=== PATIENT | female | born 1960 | race Two or more races ===

== ENCOUNTER 2021-08-11 16:47 | Emergency (ER) | payer SELFPAY ==
[~2021-08-11] VITALS: Ht 162.6 cm; Wt 56.7 kg
[2021-08-11] MEDS ORDERED: traMADol HCL 50 MG TAB PO ONE (18:45)
[2021-08-11 21:25] VITALS: BP 138/80
== END 2021-08-11 21:29 | disposition home or self-care (01) ==
LOC: ER 16:50
DX: M54.32 Sciatica, left side (principal); I10 Essential (primary) hypertension; E11.9 Type 2 diabetes mellitus without complications; J45.909 Unspecified asthma, uncomplicated; Z90.710 Acquired absence of both cervix and uterus
CPT/HCPCS: 72100

== ENCOUNTER 2023-05-04 12:12 | Inpatient (IN) | payer MEDICAID, OTHER ==
[~2023-05-04] VITALS: Ht 149.9 cm; Wt 69.9 kg
[2023-05-04] MEDS ORDERED: PANTOPRAZOLE 40 MG/10 ML VIAL INJ IV ONE ×2 (12:45→15:30)
[2023-05-04 13:27] LABS: Basophils # (auto) 0 10 ^3/uL (0-0.2); Basophils % (auto) 0.4 % (0.0-2.0); Eosinophils # (auto) 0.1 10 ^3/uL (0-0.8); Eosinophils % (auto) 1.1 % (0.0-7.0); Hematocrit 41.7 % (36.0-46.0); Hemoglobin 13.9 g/dL (12.2-16.2); Lymphocytes # (auto) 2.1 10 ^3/uL (0.4-5.4); Lymphocytes % (auto) 25.5 % (10.0-50.0); Mean Corpuscular Hemoglobin 28.4 pg (28.0-32.0); Mean Corpuscular Hgb Conc. 33.3 g/dL (32.0-36.0); Mean Corpuscular Volume 85.2 fL (80.0-100.0); Monocytes # (auto) 0.5 10 ^3/uL (0-1.3); Monocytes % (auto) 6.6 % (0.0-12.0); Neutrophils # (auto) 5.5 10 ^3/uL (1.6-8.6); Neutrophils % (auto) 66.4 % (37.0-80.0); Nucleated Red Blood Cells % 0.1 %; Red Blood Cells 4.89 10^6/uL (4.0-5.20); White Blood Cell 8.2 10^3/uL (4.4-10.8)
[2023-05-04 13:44] LABS: Urine Bacteria FEW /hpf (None Seen); Urine Blood Negative /uL (Negative); Urine Clarity Clear (Clear); Urine Protein, UAD TRACE (Negative); Urine Specific Gravity 1.034 (1.001-1.035); Urine Urobilinogen Normal (Negative); Urine WBC 5 /hpf (0 - 5)
[2023-05-04 13:49] LABS: Alanine Aminotransferase 13 U/L (7-40); Albumin 4.4 g/dL (3.2-4.8); Alkaline Phosphatase 144 U/L (46-116); Anion Gap 8 (5-15); Aspartate Aminotransferase < 8 U/L (13-40); BUN/Creatinine Ratio 8.8 (10.0-20.0); Blood Urea Nitrogen 10 mg/dL (9-23); Calcium 9.5 mg/dL (8.7-10.4); Carbon Dioxide 26 mmol/L (20-30); Chloride 93 mmol/L (98-107); Lipase 214 U/L (12-53); Potassium 4.5 mmol/L (3.5-5.1); Sodium 127 mmol/L (136-145)
[2023-05-04 13:50] LABS: Bilirubin, Total 0.6 mg/dL (0.2-1.0); Total Protein 7.2 g/dL (5.7-8.2)
[2023-05-04 13:55] LABS: Urine Color Straw (Yellow)
[2023-05-04 14:03] LABS: Glucose 532 mg/dL (74-106)
[2023-05-04] MEDS ORDERED: InsuLIN REG 1unit/0.01ml Soln (100units/ml) IV ONE (14:15)
[2023-05-04] MEDS ORDERED: SODIUM CHLORIDE 0.9% 1,000 ML IVB ONE (14:15)
[2023-05-04] MEDS ORDERED: AMLO1TAB22 PO (15:29)
[2023-05-04] MEDS ORDERED: HYDR25TA5 PO (15:29)
[2023-05-04] MEDS ORDERED: METF-370 PO (15:29)
[2023-05-04] MEDS ORDERED: ONDANSETRON HCL 4 MG/2 ML VIAL IV PRN (15:30)
[2023-05-04] MEDS ORDERED: KETOROLAC TROMETH 60MG/2ML VIAL IV ONE (15:30)
[2023-05-04] MEDS ORDERED: MORPHINE SULFATE INJ 2 MG/ml SYRG IV PRN (15:30)
[2023-05-04] MEDS ORDERED: cefTRIAXone 1GM/50ML D5W 50 ML IV ONE (15:30)
[2023-05-04] MEDS ORDERED: SODIUM CHLORIDE 0.9% 1,000 ML IV ONE (15:30)
[2023-05-04] MEDS ORDERED: DEXTROSE (50%) 50ML SYRG IV PRN (15:30)
[2023-05-04 16:18] LABS: INR 1.07 (0.9-1.15); Prothrombin Time 11.2 sec (9.3-11.8)
[2023-05-04] MEDS: ACCU-CHEK COMFORT CURVE STRIP VI SCH (17:00)
[2023-05-04] MEDS: SODIUM CHLORIDE 0.9% 1,000 ML IV SCH (17:39)
[2023-05-04] MEDS: InsuLIN REG 1unit/0.01ml Soln (100units/ml) SC SCH (17:40)
[2023-05-05] VITALS (7 sets, daily range): BP systolic 119–130; BP diastolic 72–81; PULSE 98–124; RESP 16–18; TEMP 98–98.3; O2SAT 94–99
[2023-05-05] MEDS: HEPARIN SODIUM (PORCINE) 5000 UNITS/ML 1ML VIAL SC SCH ×3 (02:09→22:00)
[2023-05-05] MEDS: InsuLIN REG 1unit/0.01ml Soln (100units/ml) SC SCH ×5 (02:11→22:33)
[2023-05-05] MEDS: ACCU-CHEK COMFORT CURVE STRIP VI SCH ×5 (02:16→22:00)
[2023-05-05] MEDS: SODIUM CHLORIDE 0.9% 1,000 ML IV SCH ×4 (03:50→22:33)
[2023-05-05 05:58] LABS: Alanine Aminotransferase 10 U/L (7-40); Alkaline Phosphatase 104 U/L (46-116); Anion Gap 7 (5-15); Aspartate Aminotransferase 9 U/L (13-40); BUN/Creatinine Ratio 6.2 (10.0-20.0); Blood Urea Nitrogen 5 mg/dL (9-23); Carbon Dioxide 27 mmol/L (20-30); Chloride 99 mmol/L (98-107); Glucose 191 mg/dL (74-106); Potassium 3.5 mmol/L (3.5-5.1)
[2023-05-05 05:59] LABS: Bilirubin, Total 0.5 mg/dL (0.2-1.0); Total Protein 6.9 g/dL (5.7-8.2)
[2023-05-05 06:02] LABS: Basophils # (auto) 0 10 ^3/uL (0-0.2); Basophils % (auto) 0.2 % (0.0-2.0); Eosinophils # (auto) 0.2 10 ^3/uL (0-0.8); Eosinophils % (auto) 2.7 % (0.0-7.0); Hemoglobin 12.3 g/dL (12.2-16.2); Lymphocytes # (auto) 2.7 10 ^3/uL (0.4-5.4); Lymphocytes % (auto) 31.2 % (10.0-50.0); Mean Corpuscular Hemoglobin 28.8 pg (28.0-32.0); Mean Corpuscular Hgb Conc. 34.3 g/dL (32.0-36.0); Mean Corpuscular Volume 84.1 fL (80.0-100.0); Monocytes # (auto) 0.5 10 ^3/uL (0-1.3); Monocytes % (auto) 5.4 % (0.0-12.0); Neutrophils # (auto) 5.2 10 ^3/uL (1.6-8.6); Neutrophils % (auto) 60.5 % (37.0-80.0); Red Blood Cells 4.28 10^6/uL (4.0-5.20); Red Cell Distribution Width 12.8 % (11.8-14.3); White Blood Cell 8.6 10^3/uL (4.4-10.8)
[2023-05-05] MEDS ORDERED: hydrALAZINE HCL 20 MG/ML VL IV ONE (06:15)
[2023-05-05 06:21] LABS: Sodium 133 mmol/L (136-145)
[2023-05-05 06:51] LABS: Lipase 114 U/L (12-53)
[2023-05-05] MEDS: amLODIPine BESYLATE 5 MG TAB PO SCH (10:00)
[2023-05-05] MEDS: HCTZ 25 MG TAB PO SCH (10:00)
[2023-05-05] MEDS: cefTRIAXone 1GM/50ML D5W 50 ML IV SCH ×2 (10:37→12:30)
[2023-05-05] MEDS: KETOROLAC TROMETH 60MG/2ML VIAL IV PRN ×2 (10:38→16:39)
[2023-05-05] MEDS: PANTOPRAZOLE 40 MG/10 ML VIAL INJ IV SCH (10:55)
[2023-05-05] MEDS: hydrALAZINE HCL 20 MG/ML VL IV PRN (11:07)
[2023-05-05] MEDS ORDERED: ONDANSETRON HCL 4 MG/2 ML VIAL ONE (12:17)
[2023-05-05] MEDS ORDERED: NEOSTIGMINE 1 MG/ML INJ (10mg/10ML VIAL) ONE (12:17)
[2023-05-05] MEDS ORDERED: fentaNYL CITRATE 100 MCG/2 ML VL ONE (12:17)
[2023-05-05] MEDS ORDERED: DexAMETHasone SOD PHOS 10MG/1ML VIAL INJ ONE (12:17)
[2023-05-05] MEDS ORDERED: MEPERIDINE HCL (25 MG/ML) 1ML VIAL ONE (12:17)
[2023-05-05] MEDS ORDERED: MIDAZOLAM HCL 2MG/2ML 2ml VIAL (1mg/ml) ONE (12:17)
[2023-05-05] MEDS ORDERED: ETOMIDATE (2MG/ML) 20ML VIAL IV ONE (12:17)
[2023-05-05] MEDS ORDERED: SODIUM CHLORIDE LOCK 10 ML ONE (12:17)
[2023-05-05] MEDS ORDERED: ROCURONIUM 10MG/ML 10ML VIAL IV ONE (12:17)
[2023-05-05] MEDS ORDERED: GLYCOPYRROLATE 0.2 MG/ML 1ML VIAL ONE (12:17)
[2023-05-05] MEDS ORDERED: BUPIVACAINE HCL 0.25% P/F 10 ML VIAL ONE (12:18)
[2023-05-05] MEDS ORDERED: SUCCINYLCHOLINE CHLORIDE 20 MG/ML 10ML VIAL IV ONE (12:19)
[2023-05-05] MEDS ORDERED: ceFAZolin 1GM/50ML 100 ML IV ONE (12:30)
[2023-05-05] MEDS ORDERED: ACCU-CHEK COMFORT CURVE STRIP VI ONE (12:30)
[2023-05-05] MEDS ORDERED: METOCLOPRAMIDE HCL 5MG/ml INJ 2ml VIAL IV PRN (12:30)
[2023-05-05] MEDS ORDERED: HYDROmorphone HCL 2 MG/ML VL/or syr IV PRN ×2 (12:30)
[2023-05-05] MEDS ORDERED: MORPHINE SULFATE INJ 2 MG/ml SYRG IV PRN (12:30)
[2023-05-05] MEDS ORDERED: INSUINJ37 SC (19:22)
[2023-05-06] VITALS (8 sets, daily range): BP systolic 102–178; BP diastolic 56–91; PULSE 97–110; RESP 18–20; TEMP 98.1–98.8; O2SAT 93–96
[2023-05-06] MEDS: InsuLIN REG 1unit/0.01ml Soln (100units/ml) SC SCH ×4 (06:29→22:23)
[2023-05-06 07:23] LABS: Basophils # (auto) 0 10 ^3/uL (0-0.2); Basophils % (auto) 0.1 % (0.0-2.0); Eosinophils # (auto) 0 10 ^3/uL (0-0.8); Hematocrit 32.7 % (36.0-46.0); Lymphocytes % (auto) 15.1 % (10.0-50.0); Mean Corpuscular Hemoglobin 28.4 pg (28.0-32.0); Mean Corpuscular Hgb Conc. 33.5 g/dL (32.0-36.0); Mean Corpuscular Volume 84.9 fL (80.0-100.0); Monocytes # (auto) 0.4 10 ^3/uL (0-1.3); Monocytes % (auto) 5.7 % (0.0-12.0); Neutrophils # (auto) 5.3 10 ^3/uL (1.6-8.6); Neutrophils % (auto) 79.1 % (37.0-80.0); Red Blood Cells 3.85 10^6/uL (4.0-5.20); Red Cell Distribution Width 13.2 % (11.8-14.3); White Blood Cell 6.7 10^3/uL (4.4-10.8)
[2023-05-06 08:16] LABS: Alanine Aminotransferase 21 U/L (7-40); Albumin 3.5 g/dL (3.2-4.8); Alkaline Phosphatase 83 U/L (46-116); Anion Gap 12 (5-15); Aspartate Aminotransferase 23 U/L (13-40); BUN/Creatinine Ratio 13.1 (10.0-20.0); Blood Urea Nitrogen 13 mg/dL (9-23); Carbon Dioxide 20 mmol/L (20-30); Chloride 100 mmol/L (98-107); Glucose 334 mg/dL (74-106); Potassium 4.1 mmol/L (3.5-5.1); Sodium 132 mmol/L (136-145)
[2023-05-06 08:17] LABS: Bilirubin, Total 0.3 mg/dL (0.2-1.0); Total Protein 5.9 g/dL (5.7-8.2)
[2023-05-06 08:20] LABS: Calcium 8.7 mg/dL (8.5-10.1)
[2023-05-06] MEDS: SODIUM CHLORIDE 0.9% 1,000 ML IV SCH (08:53)
[2023-05-06] MEDS: cefTRIAXone 1GM/50ML D5W 50 ML IV SCH (09:07)
[2023-05-06] MEDS: amLODIPine BESYLATE 5 MG TAB PO SCH (09:08)
[2023-05-06] MEDS: HCTZ 25 MG TAB PO SCH (09:09)
[2023-05-06] MEDS: PANTOPRAZOLE 40 MG/10 ML VIAL INJ IV SCH (09:09)
[2023-05-06 09:33] LABS: Lipase 90 U/L (12-53)
[2023-05-06] MEDS: HEPARIN SODIUM (PORCINE) 5000 UNITS/ML 1ML VIAL SC SCH ×2 (10:00→22:21)
[2023-05-06] MEDS: ACCU-CHEK COMFORT CURVE STRIP VI SCH ×3 (12:02→22:23)
[2023-05-06] MEDS: hydrALAZINE HCL 20 MG/ML VL IV PRN (17:18)
[2023-05-07 05:00] VITALS: BP 128/71; PULSE 109; RESP 20; TEMP 99.1; O2SAT 93
[2023-05-07] MEDS: ACCU-CHEK COMFORT CURVE STRIP VI SCH ×2 (06:34→11:45)
[2023-05-07] MEDS: InsuLIN REG 1unit/0.01ml Soln (100units/ml) SC SCH ×2 (06:38→11:48)
[2023-05-07 08:00] VITALS: RESP 18; O2SAT 94
[2023-05-07 09:00] VITALS: BP 151/89; PULSE 111; RESP 18; TEMP 98.7; O2SAT 94
[2023-05-07] MEDS: cefTRIAXone 1GM/50ML D5W 50 ML IV SCH (09:05)
[2023-05-07] MEDS: HCTZ 25 MG TAB PO SCH (09:06)
[2023-05-07] MEDS: amLODIPine BESYLATE 5 MG TAB PO SCH (09:06)
[2023-05-07] MEDS: HEPARIN SODIUM (PORCINE) 5000 UNITS/ML 1ML VIAL SC SCH (09:13)
[2023-05-07] MEDS ORDERED: InsuLIN REG 1unit/0.01ml Soln (100units/ml) SC ONE (12:30)
[2023-05-07] MEDS ORDERED: HYDR-4902 PO (12:48)
[2023-05-07 13:38] VITALS: BP 159/89; PULSE 102; RESP 18; TEMP 98.7; O2SAT 94
== END 2023-05-07 14:33 | disposition home or self-care (01) | DRG 263 ==
LOC: ER 12:12 → OVERFLOW 15:28 → WEST WING 05-05 09:31
PROVIDERS: ADMIT Nurse Practitioner Family; ATTEND Internal Medicine
PROC: 0FT44ZZ Resection of Gallbladder, Percutaneous Endoscopic Approach (ICD-10-PCS; principal; 2023-05-05 13:12)
DX: K80.00 Calculus of gallbladder with acute cholecystitis without obstruction (principal); N17.0 Acute kidney failure with tubular necrosis; K85.90 Acute pancreatitis without necrosis or infection, unspecified; E87.8 Other disorders of electrolyte and fluid balance, not elsewhere classified; E87.1 Hypo-osmolality and hyponatremia; N30.00 Acute cystitis without hematuria; I10 Essential (primary) hypertension; E66.9 Obesity, unspecified; J45.909 Unspecified asthma, uncomplicated; E11.9 Type 2 diabetes mellitus without complications; Z68.31 Body mass index [BMI] 31.0-31.9, adult; Z90.710 Acquired absence of both cervix and uterus
CPT/HCPCS: 36415; 71045; 74181; 76705; 80053; 81001; 82010; 82150; 82247; 82962; 83036; 83690; 84484; 85025; 85610; 87086; 93005; C9113; G0378; J0330; J0690; J0696; J1100; J1815; J1885; J2250; J2405; J3490

== ENCOUNTER → 2024-03-31 | Outpatient (CLI) | payer MEDICAID ==
[~2024-03-31] MED LIST: AMLO1TAB22 PO; HYDR-4902 PO; HYDR25TA5 PO; INSUINJ37 SC; METF-370 PO
[2024-03-31 11:52] LABS: Urine Bacteria None Seen /hpf (None Seen)
[2024-03-31 12:07] LABS: Urine Blood Negative /uL (Negative); Urine Clarity Turbid (Clear); Urine Color Light-Yellow (Yellow); Urine Hyaline Cast FEW /lpf (0 - 2); Urine Protein, UAD Negative (Negative); Urine Specific Gravity 1.009 (1.001-1.035); Urine Urobilinogen Normal (Negative); Urine WBC 11 /hpf (0 - 5); Urine pH 5.5 (5.0-9.0)
[2024-03-31 12:36] LABS: Creatinine, Urine 53.99 mg/dL (30.0-125.0)
== END | disposition home or self-care (01) ==
LOC: LAB 11:49
PROVIDERS: ATTEND Student in an Organized Health Care Education/Training Program
DX: Z12.11 Encounter for screening for malignant neoplasm of colon (principal); I10 Essential (primary) hypertension; E11.9 Type 2 diabetes mellitus without complications; E55.9 Vitamin D deficiency, unspecified
CPT/HCPCS: 36415; 81001; 82043; 82570

== ENCOUNTER → 2024-04-05 | Outpatient (CLI) | payer MEDICAID | END | disposition home or self-care (01) | LOC: LAB 13:23 | PROVIDERS: ATTEND Student in an Organized Health Care Education/Training Program | DX: Z12.11 Encounter for screening for malignant neoplasm of colon (principal); I10 Essential (primary) hypertension; E55.9 Vitamin D deficiency, unspecified; E11.9 Type 2 diabetes mellitus without complications | CPT/HCPCS: 82274 ==

== ENCOUNTER → 2024-05-05 | Outpatient (CLI) | payer MEDICAID | END | disposition home or self-care (01) | LOC: LAB 10:29 | PROVIDERS: ATTEND Internal Medicine | DX: E11.21 Type 2 diabetes mellitus with diabetic nephropathy (principal) | CPT/HCPCS: 36415; 83036 ==

== ENCOUNTER → 2024-05-17 | Outpatient (CLI) | payer MEDICAID | END | disposition home or self-care (01) | LOC: XYW 08:41 | PROVIDERS: ATTEND Internal Medicine | DX: R94.31 Abnormal electrocardiogram [ECG] [EKG] (principal); I10 Essential (primary) hypertension; E11.9 Type 2 diabetes mellitus without complications | CPT/HCPCS: 93306 ==

== ENCOUNTER → 2024-05-26 | Outpatient (CLI) | payer MEDICAID ==
[~2024-05-26] VITALS: Ht 149.9 cm; Wt 54.0 kg
[2024-05-26] MEDS: ADENOSINE 45 MG in GIVE UN-DILUTED 0 ML IV ONE (10:03)
--- NOTE | 2024-05-26 12:53 | DVHSR ---
APPROVED REPORT Exam: Nuclear Stress Test BMI: 0 Stress Test Details HR Max Heart Rate (APMHR): 155.422047 bpm Target HR (85% APMHR): 131.521108 bpm BP ECG Stress ECG Conclusion Resting ECG shows normal sinus rhythm. At peak stress level no dynamic EKG changes was noted to sugg est ischemia. Resting images shows near homogeneous uptake of radioactive tracer throughout the myocardium without evidence of myocardial infarction Stress images shows near homogeneous uptake of radioactive tracer throughout the myocardium without e vidence of myocardial ischemia. Well-preserved left ventricular systolic function at 60%. Impression: Negative stress test for ischemia, low risk study NM EXAM: Myocardial Perfusion REST/STRESS Imaging Protocol: Rest Tc-99m/Stress Tc-99m 1 day Resting Data Rest SPECT myocardial perfusion imaging was performed in supine position 60 minutes following the int ravenous injection of 7.5 mCi of Tc-99m Sestamibi. Time of rest injection: 800 Time of rest imagin Administration Route: IV Administration Site: Right AC Pharmacologic Stress Pharmacologic stress test was performed by injecting Adenosine mg IV push followed by the intravenou s injection of 22.8 mCi of Tc-99m Sestamibi. Time of stress injection: 10:05 Time of stress imagin:00:03 Administration Route: IV Administration Site: Right AC Gated Stress SPECT was performed 60 minutes after stress injection. The images were gated to evaluate regional wall motion and calculate left ventricular ejection fracti on. Nuclear Conclusion ECG Findings: negative for ischemia Clinical Findings: negative for ischemia Nuclear Findings: negative for ischemia Exercise Capacity: not assessed Left Ventricular Function: normal Risk Study: low Resting ECG shows normal sinus rhythm. At peak stress level no dynamic EKG changes was noted to sugg est ischemia. Resting images shows near homogeneous uptake of radioactive tracer throughout the myocardium without evidence of myocardial infarction Stress images shows near homogeneous uptake of radioactive tracer throughout the myocardium without e vidence of myocardial ischemia. Well-preserved left ventricular systolic function at 60%. Impression: Negative stress test for ischemia, low risk study
== END | disposition home or self-care (01) ==
LOC: XYW 07:43
PROVIDERS: ATTEND Internal Medicine
DX: R94.31 Abnormal electrocardiogram [ECG] [EKG] (principal)
CPT/HCPCS: 78452; 93017; A9500; J0153

== ENCOUNTER → 2024-06-21 | Outpatient (CLI) | payer MEDICAID ==
[2024-06-21 09:13] LABS: Basophils # (auto) 0 10 ^3/uL (0-0.2); Basophils % (auto) 0.3 % (0.0-2.0); Eosinophils # (auto) 0.1 10 ^3/uL (0-0.8); Eosinophils % (auto) 1.3 % (0.0-7.0); Hematocrit 37.8 % (36.0-46.0); Lymphocytes % (auto) 36.6 % (10.0-50.0); Mean Corpuscular Hemoglobin 29.1 pg (28.0-32.0); Mean Corpuscular Hgb Conc. 34.3 g/dL (32.0-36.0); Mean Corpuscular Volume 84.9 fL (80.0-100.0); Monocytes # (auto) 0.5 10 ^3/uL (0-1.3); Monocytes % (auto) 5.9 % (0.0-12.0); Neutrophils # (auto) 4.6 10 ^3/uL (1.6-8.6); Neutrophils % (auto) 55.9 % (37.0-80.0); Platelet Count (auto) 259 10^3/uL (140-450); Red Blood Cells 4.46 10^6/uL (4.0-5.20); Red Cell Distribution Width 13.2 % (11.8-14.3); White Blood Cell 8.2 10^3/uL (4.4-10.8)
[2024-06-21 09:17] LABS: Urine Amorphous Crystal FEW /hpf (None Seen); Urine Bacteria MOD /hpf (None Seen); Urine Blood Negative /uL (Negative); Urine Clarity Turbid (Clear); Urine Color Colorless (Yellow); Urine Protein, UAD Negative (Negative); Urine Specific Gravity 1.006 (1.001-1.035); Urine Urobilinogen Normal (Negative); Urine WBC 6 /hpf (0 - 5); Urine pH 5.5 (5.0-9.0)
[2024-06-21 09:49] LABS: Alanine Aminotransferase 23 U/L (7-40); Anion Gap 7 (5-15); BUN/Creatinine Ratio 10.4 (10.0-20.0); Blood Urea Nitrogen 10 mg/dL (9-23); Calcium 10.1 mg/dL (8.7-10.4); Carbon Dioxide 30 mmol/L (20-31); Chloride 100 mmol/L (98-107); Potassium 3.5 mmol/L (3.5-5.1); Sodium 137 mmol/L (136-145)
[2024-06-21 09:50] LABS: Albumin 4.5 g/dL (3.2-4.8)
[2024-06-21 09:51] LABS: Bilirubin, Total 0.4 mg/dL (0.2-1.0); Total Protein 7.4 g/dL (5.7-8.2)
[2024-06-21 09:57] LABS: Alkaline Phosphatase 128 U/L (46-116); Aspartate Aminotransferase 13 U/L (13-40); Glucose 62 mg/dL (74-106)
== END | disposition home or self-care (01) ==
LOC: LAB 08:52
PROVIDERS: ATTEND Student in an Organized Health Care Education/Training Program
DX: E11.9 Type 2 diabetes mellitus without complications (principal); I10 Essential (primary) hypertension
CPT/HCPCS: 36415; 80053; 81001; 83036; 84443; 85025

== ENCOUNTER → 2024-07-03 | Outpatient (CLI) | payer MEDICAID ==
[2024-07-04 08:06] LABS: Rheumatoid Arthritis Factor 10.9 IU/mL (<14.0)
[2024-07-04 20:06] LABS: Anti-Nuclear Antibody Direct Negative (Negative)
[2024-07-06 02:06] LABS: D001-IgE D pteronyssinus <0.10 kU/L (Class 0); E001-IgE Cat Hair/Dander <0.10 kU/L (Class 0); E005-IgE Dog Dander <0.10 kU/L (Class 0); G002-IgE Bermuda Grass 0.57 kU/L (Class II); IgE Alternaria alternata <0.10 kU/L (Class 0); IgE Cedar, Mountain 0.25 kU/L (Class 0/I); IgE Cockroach, German <0.10 kU/L (Class 0); IgE Cottonwood <0.10 kU/L (Class 0); IgE Johnson Grass <0.10 kU/L (Class 0); IgE Mouse Urine <0.10 kU/L (Class 0); IgE Mugwort 0.22 kU/L (Class 0/I); IgE Penicillium chrysogen <0.10 kU/L (Class 0); IgE Ragweed, Short 1.09 kU/L (Class II); IgE Rye, Perennial 0.28 kU/L (Class 0/I); Immunoglobulin E 142 IU/mL (6-495); M002-IgE Cladosporium herbaru <0.10 kU/L (Class 0); M003-IgE Aspergillus fumigatu <0.10 kU/L (Class 0); T007-IgE Oak, White 0.52 kU/L (Class I); T009-IgE Olive Tree 0.12 kU/L (Class 0/I); T019-IgE Mimosa/Acacia <0.10 kU/L (Class 0); W011-IgE Thistle, Russian 2.06 kU/L (Class III); W014-IgE Pigweed, Rough 0.99 kU/L (Class II)
== END | disposition home or self-care (01) ==
LOC: LAB 08:49
PROVIDERS: ATTEND Student in an Organized Health Care Education/Training Program
DX: R05.3 Chronic cough (principal)
CPT/HCPCS: 82785; 86003; 86038; 86431

== ENCOUNTER → 2024-09-14 | Outpatient (CLI) | payer MEDICAID ==
[2024-09-14 09:09] LABS: Urine Bacteria None Seen /hpf (None Seen)
[2024-09-14 09:17] LABS: Basophils # (auto) 0 10 ^3/uL (0-0.2); Basophils % (auto) 0.5 % (0.0-2.0); Eosinophils # (auto) 0.1 10 ^3/uL (0-0.8); Eosinophils % (auto) 1.4 % (0.0-7.0); Hematocrit 37.6 % (36.0-46.0); Hemoglobin 12.6 g/dL (12.2-16.2); Lymphocytes % (auto) 31.1 % (10.0-50.0); Mean Corpuscular Hemoglobin 28.4 pg (28.0-32.0); Mean Corpuscular Hgb Conc. 33.6 g/dL (32.0-36.0); Mean Corpuscular Volume 84.5 fL (80.0-100.0); Monocytes # (auto) 0.4 10 ^3/uL (0-1.3); Monocytes % (auto) 6.4 % (0.0-12.0); Neutrophils # (auto) 3.9 10 ^3/uL (1.6-8.6); Neutrophils % (auto) 60.6 % (37.0-80.0); Platelet Count (auto) 223 10^3/uL (140-450); Red Blood Cells 4.45 10^6/uL (4.0-5.20); Red Cell Distribution Width 12.9 % (11.8-14.3); White Blood Cell 6.4 10^3/uL (4.4-10.8)
[2024-09-14 09:25] LABS: Urine Blood Negative /uL (Negative); Urine Clarity Turbid (Clear); Urine Color Light-Yellow (Yellow); Urine Protein, UAD Negative (Negative); Urine Specific Gravity 1.012 (1.001-1.035); Urine Squamous Epithelial Cell FEW /hpf (<5); Urine Urobilinogen Normal (Negative); Urine WBC 3 /HPF (0-5); Urine pH 5.5 (5.0-9.0)
[2024-09-14 10:36] LABS: Creatinine, Urine 97.46 mg/dL (30.0-125.0)
[2024-09-14 10:40] LABS: Alanine Aminotransferase 14 U/L (7-40); Anion Gap 7 (5-15); Blood Urea Nitrogen 13 mg/dL (9-23); Calcium 9.9 mg/dL (8.7-10.4); Carbon Dioxide 29 mmol/L (20-31); Chloride 99 mmol/L (98-107); Potassium 4.6 mmol/L (3.5-5.1)
[2024-09-14 10:41] LABS: Albumin 4.7 g/dL (3.2-4.8)
[2024-09-14 10:42] LABS: Bilirubin, Total 0.5 mg/dL (0.2-1.0); Total Protein 7.2 g/dL (5.7-8.2)
[2024-09-14 10:55] LABS: Alkaline Phosphatase 117 U/L (46-116); Aspartate Aminotransferase 9 U/L (13-40); Cholesterol 214 mg/dL (< 200); Glucose 234 mg/dL (74-106); HDL Cholesterol 30 mg/dL (40-59); LDL Cholesterol 138 mg/dL (< 100); Sodium 135 mmol/L (136-145); Triglycerides 268 mg/dL (< 150)
== END | disposition home or self-care (01) ==
LOC: LAB 08:54
PROVIDERS: ATTEND Student in an Organized Health Care Education/Training Program
DX: Z12.11 Encounter for screening for malignant neoplasm of colon (principal); I10 Essential (primary) hypertension; E11.9 Type 2 diabetes mellitus without complications
CPT/HCPCS: 36415; 80053; 80061; 81001; 82043; 82570; 83036; 84443; 85025

== ENCOUNTER → 2024-09-28 | Outpatient (CLI) | payer MEDICAID | END | disposition home or self-care (01) | LOC: LAB 13:38 | PROVIDERS: ATTEND Student in an Organized Health Care Education/Training Program | DX: Z12.11 Encounter for screening for malignant neoplasm of colon (principal); I10 Essential (primary) hypertension; E11.9 Type 2 diabetes mellitus without complications | CPT/HCPCS: 82274 ==

== ENCOUNTER → 2024-10-25 | Outpatient (CLI) | payer MEDICAID | END | disposition home or self-care (01) | LOC: LAB 08:59 | PROVIDERS: ATTEND Internal Medicine Rheumatology | DX: M81.0 Age-related osteoporosis without current pathological fracture (principal) | CPT/HCPCS: 36415; 82306; 82330; 83970; 84100 ==

== ENCOUNTER → 2024-11-08 | Outpatient (CLI) | payer MEDICAID ==
[2024-11-08 12:06] LABS: Anion Gap 7 (5-15); Aspartate Aminotransferase 24 U/L (13-40); Bilirubin, Total 0.3 mg/dL (0.2-1.0); Blood Urea Nitrogen 11 mg/dL (9-23); Carbon Dioxide 30 mmol/L (20-31); Potassium 4.7 mmol/L (3.5-5.1); Total Protein 7.6 g/dL (5.7-8.2)
[2024-11-08 12:08] LABS: Alanine Aminotransferase 42 U/L (7-40); Albumin 4.8 g/dL (3.2-4.8); Alkaline Phosphatase 116 U/L (46-116); Calcium 10.5 mg/dL (8.7-10.4); Chloride 98 mmol/L (98-107); Glucose 327 mg/dL (74-106); Sodium 135 mmol/L (136-145)
[2024-11-08 12:25] LABS: Basophils # (auto) 0 10 ^3/uL (0-0.2); Basophils % (auto) 0.3 % (0.0-2.0); Eosinophils # (auto) 0.1 10 ^3/uL (0-0.8); Eosinophils % (auto) 1.3 % (0.0-7.0); Hematocrit 36.7 % (36.0-46.0); Hemoglobin 12.7 g/dL (12.2-16.2); Lymphocytes # (auto) 2.2 10 ^3/uL (0.4-5.4); Mean Corpuscular Hemoglobin 29.3 pg (28.0-32.0); Mean Corpuscular Hgb Conc. 34.7 g/dL (32.0-36.0); Mean Corpuscular Volume 84.5 fL (80.0-100.0); Monocytes # (auto) 0.4 10 ^3/uL (0-1.3); Monocytes % (auto) 5.7 % (0.0-12.0); Neutrophils # (auto) 5.1 10 ^3/uL (1.6-8.6); Neutrophils % (auto) 64.7 % (37.0-80.0); Platelet Count (auto) 263 10^3/uL (140-450); Red Blood Cells 4.34 10^6/uL (4.0-5.20); Red Cell Distribution Width 12.9 % (11.8-14.3); White Blood Cell 7.9 10^3/uL (4.4-10.8)
== END | disposition home or self-care (01) ==
LOC: LAB 11:23
PROVIDERS: ATTEND Internal Medicine Rheumatology
DX: M81.0 Age-related osteoporosis without current pathological fracture (principal); Z79.899 Other long term (current) drug therapy
CPT/HCPCS: 36415; 80053; 82306; 82330; 83970; 84100; 85025